=== PATIENT | male | born 1955 | race Caucasian/White ===

== ENCOUNTER 2022-05-19 05:31 | Day surgery (SDC) | payer BC ==
[2022-05-14 15:29] LABS: BASOPHILS # (AUTO) 0.1 X10'3 (0-0.2); BASOPHILS % (AUTO) 0.8 % (0-1); EOSINOPHILS # (AUTO) 0.2 X10'3 (0-0.9); EOSINOPHILS % (AUTO) 2.5 % (0-6); LYMPHOCYTES # (AUTO) 1.8 X10'3 (1.1-4.8); LYMPHOCYTES % (AUTO) 29.9 % (21-51); MEAN CORPUSCULAR HEMOGLOBIN 32.6 PG (27.0-31.0); MEAN CORPUSCULAR HGB CONC 33.4 g/dL (33.0-36.5); MEAN CORPUSCULAR VOLUME 97.4 FL (78-98); MEAN PLATELET VOLUME 6.8 FL (7.4-10.4); MONOCYTES # (AUTO) 0.6 X10'3 (0-0.9); MONOCYTES % (AUTO) 9.5 % (2-12); NEUTROPHILS # (AUTO) 3.5 X10'3 (1.8-7.7); NEUTROPHILS % (AUTO) 57.3 % (42-75); PRE OP HEMATOCRIT 42.9 % (42.0-52.0); PRE OP HEMOGLOBIN 14.3 g/dL (14.0-17.9); PRE OP PLATELET COUNT 250 X10'3 (140-440); RED CELL DISTRIBUTION WIDTH 15.4 % (11.5-14.5)
[2022-05-14 15:35] LABS: ALBUMIN 3.7 G/DL (3.4-5.0); ALKALINE PHOSPHATASE 125 IU/L (46-116); BLOOD UREA NITROGEN 23 MG/DL (7-18); BUN/CREATININE RATIO 21.7 (10.0-20.0); CALCIUM 8.8 MG/DL (8.5-10.1); CHLORIDE 106 MMOL/L (99-107); CREATININE 1.06 MG/DL (0.60-1.10); PRE OP ALT 26 U/L (30-65); PRE OP ANION GAP 7 (8-16); PRE OP AST 24 U/L (10-37); PRE OP BILIRUB, TOTAL 0.3 MG/DL (0.0-1.0); PRE OP GLUCOSE 91 MG/DL (70-104); PRE OP POTASSIUM 3.7 MMOL/L (3.4-5.1); PRE OP SODIUM 140 MMOL/L (135-145); TOTAL CARBON DIOXIDE 26.9 MMOL/L (24-32); TOTAL PROTEIN 7.5 G/DL (6.4-8.2); eGFR 70 ML/MIN
[2022-05-19] VITALS (27 sets, daily range): BP systolic 89–132; BP diastolic 56–91
[~2022-05-19] VITALS: Ht 172.7 cm; Wt 73.0 kg
[~2022-05-19 05:31] MED LIST: ASCO-283 PO; DONE-46 PO; FLO0.4C PO; MAGN400C PO; NAPR220T67 PO; POTA99TA26 PO; VITA-268 PO; ZINC220T3 PO; acetaminophen 325mg tablet PO ONE; cefazolin 2gm/D5W 100mL 100 ML IV ONE; celeCOXIB 100mg capsule PO ONE; famotidine 20mg tablet PO ONE; gabapentin 300mg capsule PO ONE; metoclopramide 5 mg/ml inj IV ONE; oxyCODONE SR 10mg (sust. release) tab -2 tabs (20mg) PO ONE; ringers solution, lacted 1,000 ML IV SCH; tranexamic acid inj. 1,000 MG in normal saline IV soln 100ML IV ONE; vancomycin 1,500 MG in NS 300ml IV soln IV ONE
[2022-05-19] MEDS ORDERED: diphenhydrAMINE 25mg capsule PO PRN ×2 (06:40)
[2022-05-19] MEDS ORDERED: ondansetron/PF 4mg/2ml inj IV PRN ×2 (06:40→08:05)
[2022-05-19] MEDS ORDERED: HYDROmorphone 1 mg/ml syringe IV PRN (06:40)
[2022-05-19] MEDS ORDERED: acetaminophen 325mg tablet PO PRN (06:40)
[2022-05-19] MEDS ORDERED: HYDROmorphone inj. 0.5 MG/0.5 ML DISP.SYRIN IV PRN (06:40)
[2022-05-19] MEDS ORDERED: magnesium hydroxide 30ml (MOM) UD suspension PO PRN (06:40)
[2022-05-19] MEDS ORDERED: naloxone 0.4 mg/ml inj IV PRN (06:40)
[2022-05-19] MEDS ORDERED: bisacodyl 10mg suppository rectal RC PRN (06:40)
--- NOTE | 2022-05-19 07:00 | NUR ---
CMS NOTE: PT STATES HE SHOWERED X5 DAYS WITH HIBICLENS. MUPIROCIN OINTMENT NOT ORDERED FOR THIS PT. PT HAS PALPABLE BILAT DORSALIS PEDIS PULSES. PT STATES HE READ THE BOOKLET. PT HAS BEEN EDUCATED ON USE OF IS.
[2022-05-19] MEDS ORDERED: epiNEPHrine 1 mg/ml inj ONE (07:17)
[2022-05-19] MEDS ORDERED: cloNIDine hcl/PF 100mcg/ml inj ONE (07:17)
[2022-05-19] MEDS ORDERED: vancomycin 1,000mg inj ONE (07:18)
[2022-05-19] MEDS ORDERED: ROPIVAcaine 0.5% (5mg/ml) 30ml vial ONE (07:18)
[2022-05-19] MEDS ORDERED: fentaNYL/PF 50MCG/1 ML 2ML syringe ONE (07:30)
[2022-05-19] MEDS ORDERED: midazolam 1 mg/ML 2ml injection ONE (07:53)
[2022-05-19] MEDS ORDERED: meperidine/PF 25mg/ml syringe IV PRN ×3 (08:05)
[2022-05-19] MEDS ORDERED: ringers solution, lacted 1,000 ML IV SCH (08:05)
[2022-05-19] MEDS ORDERED: morphine 4 MG/ML inj SYRINge IV PRN (08:05)
[2022-05-19] MEDS ORDERED: acetaminophen 1,000mg/100ml IV 100 ML IV PRN (08:05)
[2022-05-19] MEDS ORDERED: proCHLORperazine 10 MG/2 ml inj IV PRN (08:05)
[2022-05-19] MEDS ORDERED: morphine 2 MG/ML inj. syringe IV PRN (08:05)
[2022-05-19] MEDS ORDERED: ePHEDrine 50MG/ML INJ. ONE (08:28)
[2022-05-19] MEDS ORDERED: propofol inj 20 ML IV ONE (08:28)
--- NOTE | 2022-05-19 08:59 | NUR ---
Received from OR via BED, accompanied by Anesthesiologist DR SANCHEZ and report given by Anesthesiologist AND WARPER TENDER. PT AWAKE, TALKATIVE, SOMEWHAT FORGETFUL, DENIES PAIN, RIGHT HIP W/JASON DRAIN/DRSG W/GREEN LIGHT ILLUMINATION, LEG BRACE ON AND IN PLACE. PT DERMATOME LEVEL L-1. Addendum: 05/19/22 at 4498 by Krupa Moyer RN Amended: Links added.
--- NOTE | 2022-05-19 11:09 | NUR ---
Report called to receiving nurse. Transferred via BED, PTS HAS ALL OF PTS Belongings. BLL, CALL LIGHT GIVEN TO PT, SIDE RAILS UP X 2, RECEIVING RN AT BEDSIDE, PTS NOTIFIED OF PTS TRANSFER TO ROOM 340A. Special Issues communicated to receiving nurse. YES. Addendum: 05/19/22 at 1124 by Krupa Moyer RN Amended: Links added.
--- NOTE | 2022-05-19 11:45 | NUR ---
Received to room 340A, accompanied by OR Nurse and surgical crew. See assessment records. IVs noted in IV assessment records. All sites without redness or swelling. No c/o pain or discomfort. Pedal pulses strong. Brace to right leg in place circulation normal. Patient denies any discomfort at this time. Applied new ice pack to right hip. Pre opp VS started. All safety measures in place and call light in reach. Will continue to monitor.
[2022-05-19] MEDS ORDERED: tranexamic acid inj. 700 MG in normal saline 100ml IV soln 93 ML IV ONE (12:00)
[2022-05-19] MEDS: potassium cl 20mEq in 1/2 NS 1,000 ML IV SCH ×3 (14:40→22:40)
[2022-05-19] MEDS: ceFAZolin/D5W- 1GM premix 50 ML IV SCH ×2 (15:13→23:46)
--- NOTE | 2022-05-19 17:39 | NUR ---
is Johann phone number is by charge nurse. Please call if gets too confused. Patient is very flat effect and hard to read his emotions. Urinal at bedside and using it appropriately. Remined him he had a right hip surgery 3 times since admitted. Explained brace and why its on. Patient refuses any pain medications wants to go home. left hospital crying but wanted to go home and get some sleep. Provided the family with education and importance of him staying over night and they agreed to stay. They are anticipating being discharged in [employer]/ PT paged and said they were unable to walk patient. Patient requests to get out of bed. Charge nurse denied nursing staff. PT has to evaluate first. No BM this shift. Tolerating regular diet. VSS. Pedal pulses strong. Skin warm and intact. All safety measures in place and call light in reach. Will continue to monitor until report to [facility] shift lead.
[2022-05-19] MEDS: HYDROcodone/acetaminophen 10/325mg tab PO PRN ×2 (19:32→23:48)
[2022-05-19] MEDS: vancomycin/NS 1 GM ADD-VANTAGE 250 ML IV SCH ×2 (19:33→20:24)
[2022-05-19] MEDS: ascorbic acid 500mg tablet PO SCH (19:33)
[2022-05-19] MEDS: gabapentin 300mg capsule PO SCH (20:23)
[2022-05-19] MEDS ORDERED: sennosides 8.6mg tablet PO SCH (21:00)
[2022-05-20 02:00] VITALS: BP 102/57
[2022-05-20] MEDS: HYDROcodone/acetaminophen 10/325mg tab PO PRN ×2 (05:29→10:00)
[2022-05-20 06:00] VITALS: BP 96/57
[2022-05-20 06:16] LABS: BASOPHILS % (AUTO) 0.4 % (0-1); EOSINOPHILS # (AUTO) 0.1 X10'3 (0-0.9); EOSINOPHILS % (AUTO) 1.2 % (0-6); HEMOGLOBIN 12.6 g/dl (14.0-17.9); LYMPHOCYTES # (AUTO) 1.1 X10'3 (1.1-4.8); LYMPHOCYTES % (AUTO) 13.6 % (21-51); MEAN CORPUSCULAR HEMOGLOBIN 33.2 PG (27.0-31.0); MEAN CORPUSCULAR HGB CONC 34.1 g/dL (33.0-36.5); MEAN CORPUSCULAR VOLUME 97.3 FL (78-98); MEAN PLATELET VOLUME 6.9 FL (7.4-10.4); MONOCYTES # (AUTO) 1.1 X10'3 (0-0.9); MONOCYTES % (AUTO) 13.5 % (2-12); NEUTROPHILS # (AUTO) 5.6 X10'3 (1.8-7.7); NEUTROPHILS % (AUTO) 71.3 % (42-75); PLATELET COUNT 206 X10'3 (140-440); RED CELL DISTRIBUTION WIDTH 15.4 % (11.5-14.5); WHITE BLOOD COUNT 7.8 X10'3 (4.5-11.0)
--- NOTE | 2022-05-20 06:27 | NUR ---
Problems reprioritized. Patient report given, questions answered & plan of care reviewed with RODDY CERDA.
--- NOTE | 2022-05-20 06:30 | NUR ---
Patient in room . I have received report from CAMERON Mckeon and had the opportunity to ask questions and assume patient care.
[2022-05-20 06:38] LABS: ANION GAP 4 (8-16); CHLORIDE 107 MMOL/L (99-107); POTASSIUM 4.3 MMOL/L (3.5-5.1); SODIUM 137 MMOL/L (135-145); TOTAL CARBON DIOXIDE 26.4 MMOL/L (24-32)
[2022-05-20] MEDS: potassium cl 20mEq in 1/2 NS 1,000 ML IV SCH (06:40)
[2022-05-20] MEDS: gabapentin 300mg capsule PO SCH (07:28)
[2022-05-20] MEDS: ascorbic acid 500mg tablet PO SCH (07:29)
[2022-05-20] MEDS ORDERED: donepezil 5mg tablet PO SCH (08:00)
[2022-05-20] MEDS ORDERED: tamsulosin 0.4mg capsule PO SCH (08:00)
[2022-05-20] MEDS ORDERED: multivitamins, therapeutics tablet PO SCH (08:00)
[2022-05-20] MEDS ORDERED: aspirin 325mg tablet PO SCH (08:30)
--- NOTE | 2022-05-20 10:14 | NUR ---
I have reviewed and agree with interventions, assessments, and documentation by RODDY Teixeira.
--- NOTE | 2022-05-20 10:30 | NUR ---
Patient stable and appropriate for discharge. All discharge instructions gone over with patient and . All questions answered. IV removed, cannula intact. Patient taken to lobby via wheelchair and left in private vehicle with .
--- NOTE | 2022-05-20 12:40 | NUR ---
Joint surgery consult: Pt s/p R hip surgery this admit per EMR. Pt discharged prior to RD visit; written high protein diet ed w/ RD contact information mailed to pt home address provided in EMR. Addendum: 05/20/22 at [address] Amended: Links added.
[2022-05-20] MEDS ORDERED: celeCOXIB 100mg capsule PO SCH (20:00)
== END 2022-05-20 10:28 | disposition home or self-care (01) ==
LOC: PAS 05:31 → SUR 3N 06:38 → PAS 05-20 10:28
PROVIDERS: ATTEND Orthopaedic Surgery
DX: M16.11 Unilateral primary osteoarthritis, right hip (principal); Z79.01 Long term (current) use of anticoagulants; Z79.899 Other long term (current) drug therapy; Z98.890 Other specified postprocedural states; F03.90 Unspecified dementia, unspecified severity, without behavioral disturbance, psychotic disturbance, mood disturbance, and anxiety
CPT/HCPCS: 27130; 36415; 72170; 80051; 80053; 82948; 85025; 86885; 86900; 86901; 87081; 93005; 97116; 97161; 97530; C1776; J0171; J0690; J0735; J2250; J2704; J2765; J2795; J3010; J3370; J3480; J3490; J7030; J7120; Z7506; Z7508; Z7512; A7000; G0378